=== PATIENT | male | born 1990 | race Two or more races ===

== ENCOUNTER 2019-01-10 17:40 | Emergency (ER) | payer SELFPAY ==
[~2019-01-10] VITALS: Ht 188 cm; Wt 72.6 kg
--- NOTE | 2019-01-10 17:54 | Emergency Room Report ---
History of Present Illness General Chief Complaint: Altered Level of Consciousness Source: EMS (Marbella Fernandes DO) Present Illness HPI Patient brought in by paramedics found unresponsive in the street Patient arousable to physical stimuli No obvious physical trauma is evident Patient nonverbal with us History of present illness remains significantly limited There was no reports of trauma seen (Marbella Fernandes DO) Allergies: Coded Allergies: UNABLE TO ASSESS (Unverified , 01/10/19) Patient History Limited by: medical condition Past Medical History: see triage record Pertinent Family History: unable to obtain Reviewed Nursing Documentation: PMH: Agreed; PSxH: Agreed (Marbella Fernandes DO) Nursing Documentation-PMH Past Medical History: No Stated History (Marbella Fernandes DO) Review of Systems All Other Systems: limited - Other than the ones mentioned in the history of present illness all others are reviewed however they do stay limited due to the patient's mental status (Marbella Fernandes DO) Physical Exam Vital Signs Date Time Temp Pulse Resp B/P (MAP) Pulse Ox O2 Delivery O2 Flow Rate FiO2 01/10/19 17:36 97.3 68 14 112/76 (88) 100 Room Air Sp02 EP Interpretation: reviewed, normal General Appearance: no apparent distress Head: normocephalic, atraumatic Eyes: bilateral eye PERRL ENT: normal pharynx, no angioedema Neck: supple Respiratory: lungs clear Cardiovascular #1: regular rate, rhythm Gastrointestinal: non tender, soft Musculoskeletal: other - Patient does not follow commands, withdraws from physical stimuli Neurologic: responsive - As above Skin: no rash Lymphatic: no adenopathy (Marbella Fernandes DO) Medical Decision Making Diagnostic Impression: Primary Impression: Alcohol intoxication Qualified Codes: F10.920 - Alcohol use, unspecified with intoxication, uncomplicated ER Course Multiple differentials in consideration There was initially report of possible alcohol smell on the patient however given his unresponsiveness and lack of any information other differentials such as head injury, metabolic pathology entertained Patient's electronic normal CT head did not show any acute disease Alcohol level was elevated patient's further hydrated and pending further sobering Labs Test 01/10/19 18:00 01/10/19 18:20 White Blood Count 6.3 K/UL (4.8-10.8) Red Blood Count 5.40 M/UL (4.70-6.10) Hemoglobin 14.4 G/DL (14.2-18.0) Hematocrit 42.7 % (42.0-52.0) Mean Corpuscular Volume 79 FL (80-99) Mean Corpuscular Hemoglobin 26.6 PG (27.0-31.0) Mean Corpuscular Hemoglobin Concent 33.6 G/DL (32.0-36.0) Red Cell Distribution Width 12.6 % (11.6-14.8) Platelet Count 202 K/UL (150-450) Mean Platelet Volume 6.6 FL (6.5-10.1) Neutrophils (%) (Auto) 53.7 % (45.0-75.0) Lymphocytes (%) (Auto) 35.7 % (20.0-45.0) Monocytes (%) (Auto) 7.4 % (1.0-10.0) Eosinophils (%) (Auto) 2.2 % (0.0-3.0) Basophils (%) (Auto) 1.0 % (0.0-2.0) Sodium Level 142 MMOL/L (136-145) Potassium Level 3.4 MMOL/L (3.5-5.1) Chloride Level 104 MMOL/L (98-107) Carbon Dioxide Level 26 MMOL/L (21-32) Anion Gap 12 mmol/L (5-15) Blood Urea Nitrogen 12 mg/dL (7-18) Creatinine 0.9 MG/DL (0.55-1.30) Estimat Glomerular Filtration Rate > 60 mL/min (>60) Glucose Level 94 MG/DL (74-106) Calcium Level 8.8 MG/DL (8.5-10.1) Total Bilirubin 0.2 MG/DL (0.2-1.0) Aspartate Amino Transf (AST/SGOT) 39 U/L (15-37) Alanine Aminotransferase (ALT/SGPT) 35 U/L (12-78) Alkaline Phosphatase 67 U/L (46-116) Total Protein 8.1 G/DL (6.4-8.2) Albumin 3.8 G/DL (3.4-5.0) Globulin 4.3 g/dL Albumin/Globulin Ratio 0.9 (1.0-2.7) Salicylates Level 1.7 ug/mL (2.8-20) Acetaminophen Level < 2 MCG/ML (10-30) Serum Alcohol 257 mg/dL Urine Opiates Screen Negative (NEGATIVE) Urine Barbiturates Screen Negative (NEGATIVE) Phencyclidine (PCP) Screen Negative (NEGATIVE) Urine Amphetamines Screen Negative (NEGATIVE) Urine Benzodiazepines Screen Negative (NEGATIVE) Urine Cocaine Screen Negative (NEGATIVE) Urine Marijuana (THC) Screen Negative (NEGATIVE) (Marbella Fernandes DO) ER Course Patient presents with altered mental status secondary to alcohol intoxication. He was signout to me. He slept for several hours. Now is awake. Able to give his name and date of . Not suicidal homicidal. Not homeless. We'll discharge home. (Conor Oneill MD) Rhythm Strip Diag. Results EP Interpretation: yes Rate: 77 Rhythm: NSR, no PVC's, no ectopy (Marbella Fernandes DO) CT/MRI/US Diagnostic Results CT/MRI/US Diagnostic Results : Impression CT head no acute disease (Marbella Fernandes DO) Last Vital Signs Date Time Temp Pulse Resp B/P (MAP) Pulse Ox O2 Delivery O2 Flow Rate FiO2 01/10/19 17:36 97.3 68 14 112/76 (88) 100 Room Air Status: improved (Marbella Fernandes DO) Status: improved (Conor Oneill MD) Disposition: HOME, SELF-CARE Condition: Stable Scripts Unable to Obtain Active Prescriptions or Reported Meds Additional Instructions: Abstain from alcohol. Follow-up with your doctor in 7 days. Return if worse. Marbella Fernandes DO Jan 10, 2019 17:54 Conor Oneill MD Jan 11, 2019 00:27
[2019-01-10 18:04] VITALS: BP 109/56
[2019-01-10 18:18] LABS: EOSINOPHILS % (AUTO) 2.2 % (0.0-3.0); HEMATOCRIT 42.7 % (42.0-52.0); HEMOGLOBIN 14.4 G/DL (14.2-18.0); LYMPHOCYTES % (AUTO) 35.7 % (20.0-45.0); MEAN CORPUSCULAR VOLUME 79 FL (80-99); MONOCYTES % (AUTO) 7.4 % (1.0-10.0); NEUTROPHILS % (AUTO) 53.7 % (45.0-75.0); PLATELET COUNT 202 K/UL (150-450); RED CELL DISTRIBUTION WIDTH 12.6 % (11.6-14.8); WHITE BLOOD COUNT 6.3 K/UL (4.8-10.8)
[2019-01-10 18:33] LABS: ANION GAP 12 mmol/L (5-15); BLOOD UREA NITROGEN 12 mg/dL (7-18); CALCIUM 8.8 MG/DL (8.5-10.1); CARBON DIOXIDE 26 MMOL/L (21-32); CHLORIDE 104 MMOL/L (98-107); CREATININE 0.9 MG/DL (0.55-1.30); POTASSIUM 3.4 MMOL/L (3.5-5.1); SODIUM 142 MMOL/L (136-145)
[2019-01-10 18:38] LABS: ALANINE AMINOTRANSFERASE 35 U/L (12-78); ALBUMIN 3.8 G/DL (3.4-5.0); ALBUMIN/GLOBULIN RATIO 0.9 (1.0-2.7); ALKALINE PHOSPHATASE 67 U/L (46-116); ASPARTATE AMINO TRANSFERASE 39 U/L (15-37); BILIRUBIN,TOTAL 0.2 MG/DL (0.2-1.0)
--- NOTE | 2019-01-10 19:04 | NUR ---
ED Nurse Note: Pt BIBA c/o ETOH per EMS pt found sleeping on street. Pt arrived asleep and only moves with painful stimuly. PT arrived with no ID and is a andrea rogers. Pt VSS no acute distress noted.
[2019-01-10 19:08] VITALS: BP 100/58
--- NOTE | 2019-01-10 19:08 | NUR ---
ED Nurse Note: received report from Rn Matt and assumed care, pt sleeping at this time, pt arousable to light pain but lethargic, pt unable to answer questions at this time. vss. resp even and unlabored on RA, will cont monitor. bed lowest position w/ siderail x2.
--- NOTE | 2019-01-10 19:08 | NUR ---
HAND-OFF: Report given to TIFFANY Phillip.
[2019-01-10 20:30] VITALS: BP 105/62
--- NOTE | 2019-01-10 21:00 | NUR ---
ED Nurse Note: PT STILL SLEEPING AT THIS TIME, UNABLE TO ANSWER QUESTIONS, VSS, ALL SAFETY PRECAUTIONS IN PLACE, WILL CONT MONITOR.
[2019-01-10 21:30] VITALS: BP 109/58
[2019-01-10 23:30] VITALS: BP 108/70
--- NOTE | 2019-01-10 23:40 | NUR ---
ED Nurse Note: PT NOW AWAKE AND AA&OX4, GCS=15, ABLE TO ANSWER QUESTIONS, AMBULATORY W/ STEADY GAIT, ERMD NOTIFIED. PT REPORTS HE WANTS TO LEAVE BUT WANTS SOMETHING TO EAT.
[2019-01-11 00:30] VITALS: BP 110/86
--- NOTE | 2019-01-11 00:30 | NUR ---
ED Nurse Note: PT CLEARED TO BE D/C PER ERMD, PT DISCHARGE AND AFTERCARE INSTRUCTION PROVIDED, PT ADVISED TO STOP DRINKING AND AVOID USING ILLECIT DRUGS, PT VERBALIZED UNDERSTANDING AND AGREES WITH PLAN, PT REFUSED ALCOHOL REHAB INFORMATION AT THIS TIME, PT STATES HE HAS TAP CARD AND WILL USE IT TO GO HOME, PT GIVEN SANDWICH AND JUCIE. PT LEFT W/ ALL BELONGINGS, AA&OX4, GCS=15, AMBULATORY W/ STEADY GAIT. IV D/C AND DRESSING APPLIED, ID BAND REMOVED.
--- NOTE | 2019-01-11 10:45 | Diagnostic Imaging Report ---
Indication: Altered mental status Technique: Contiguous 5 mm thick transaxial imaging of the head obtained in a Siemens Sensation [address] scanner. Soft tissue and bone windows generated. Automatic Exposure Control was utilized. Total Dose length Product (DLP): 1439.[address] Dose Index Volume (CTDIvol): 70.38 mGy Comparison: none Findings: The size and configuration of the cortical sulci, basal cisterns, and ventricles are within normal limits for age. There is no mass effect, midline shift, or edema identified. There is no evidence of acute hemorrhage or abnormal intra-axial or extra-axial fluid collections. The bones and soft tissues are unremarkable. Impression: No mass effect, edema or acute bleed. The CT scanner at [facility] is accredited by the [employer] and the scans are performed using dose optimization techniques as appropriate to a performed exam including Automatic Exposure control.
== END 2019-01-11 00:30 | disposition home or self-care (01) ==
LOC: EDBD 17:40 → EMR 18:14 → EDBD 18:14 → EMR 01-11 00:30
DX: F10.129 Alcohol abuse with intoxication, unspecified (principal)
CPT/HCPCS: 36415; 70450; 80053; 80307; 85025; 96360; 99284; G0480; 80329